=== PATIENT | male | born 1940 | race Caucasian/White ===

== ENCOUNTER 2017-11-17 12:50 | Day surgery (SDC) | payer MEDICARE, OTHER ==
--- NOTE | 2017-11-02 10:59 | HP ---
AMENDED REPORT NOW INCLUDES COSIGNER DESIGNATION - ESIGNED BEFORE ADJUSTMENTS CC: Dr. Ranjeet New * ADMISSION HISTORY AND PHYSICAL: DATE OF ADMISSION: 11/17/17 ATTENDING SURGEON: Miguel Bello MD * (DICTATED BY TIM BURGOS) CHIEF COMPLAINT: Left inguinal hernia (recurrent). HISTORY OF PRESENT ILLNESS: This is a 77-year-old male who relates a history of left groin bulge over the past 1 to 2 years. It has been minimally symptomatic with only occasional twinges of discomfort, particularly when he is upright and/or active for long periods of time. The bulge self-reduces when he is recumbent or supine. He has not had any change in GI or symptoms. Hernia was confirmed by his PCP, Dr. New, on routine exam in July and he was subsequently seen by Dr. Bello on 07/27/17. Exam at that time confirmed the presence of a left inguinal hernia, which was nontender and reducible. The patient had undergone repair of left inguinal hernia as a teenager. He is also status post repair of incarcerated right inguinal hernia as a teenager and then subsequent laparoscopic repair of recurrent right inguinal hernia with mesh in 2014. That surgery was otherwise unremarkable. Dr. Bello has discussed with him the indications for repair of this recurrent left inguinal hernia, the utilization of mesh, and the potential approaches of laparoscopic versus open. The patient understands all of these issues and would like to proceed as scheduled with laparoscopic, possible open, repair of left inguinal hernia with mesh. PAST MEDICAL HISTORY: 1. Depression and anxiety. 2. He has a history of lyme disease, which manifested with arthritis. He continues to have some arthritis changes in both wrists, which he manages conservatively. 3. He also has polyuria and urinary urgency with nocturia, but these symptoms have remained stable. 4. He has been treated for a couple of basal cell and squamous cell skin cancers and does have a yearly dermatological evaluation. 5. Chronic pain related to left upper extremity injury. 6. History on record indicates a past history of a right bundle-branch block with a negative stress test in 2001 and no additional interval problems. 7. He also has chronic allergic sinusitis and rhinitis. PAST SURGICAL HISTORY: 1. Bilateral hernia repairs as noted above. 2. He has undergone tonsillectomy remotely. 3. Varicose vein surgery of the right lower extremity including closure procedure of the greater saphenous vein. 4. Skin cancer excisions as noted. 5. No history of surgical anesthesia complications. CURRENT MEDICATIONS: 1. Sertraline 100 mg 1/3 tablet once daily. 2. Aspirin 325 mg one half tablet once daily (the patient will hold 7 to 10 days prior to surgery). 3. Multivitamin once daily. He also takes the following supplements. 1. Vitamin C. 2. Vitamin D. 3. Glucosamine chondroitin with MSM. 4. Curcumin. 5. JUAN-e. 6. Boswellia ty extract. 7. Melatonin p.r.n. 8. Calcium, magnesium and zinc. 9. Vitamin E. 10. Lycopene. 11. Resveratrol. (He is advised to hold his supplements for 3 days preop). DRUG ALLERGIES: No known drug allergies (he did have a serious allergic reaction to duck eggs in the past). FAMILY HISTORY: Negative for anesthesia problems, bleeding, or clotting disorders. SOCIAL HISTORY: The patient is . 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 He denies use of tobacco and drinks alcohol infrequently. He denies other drug use. REVIEW OF SYSTEMS: General: No recent constitutional symptoms or acute illnesses. His weight has been stable. Cardiovascular: As noted above, also with history of borderline hypertension, which has not required treatment. No recent chest pain, palpitations. Respiratory: No history of chronic cough, shortness of breath. He self-treats with saline rinses for his allergic rhinitis. GI: Colonoscopy done in 2010, which was a fairly normal study and no interval problems reported. : As noted above with urgency, polyuria and nocturia, but no changes in recent years. His chart record from Dr. New indicated that tamsulosin was prescribed, but that was not on his current med list per our chart record and I did not ask him. Endocrine: No diabetes or thyroid dysfunction. Neuro/Psych: History of depression and anxiety, stable. History of shingles with posthepatic neuralgia, resolved. Musculoskeletal: History of lyme. Possible lyme-related arthritis, stable. Dermatological/ Integumentary: History of nonmelanoma skin cancers, followed by Dermatology. PHYSICAL EXAMINATION GENERAL: Well-nourished, well-developed male, in no acute distress. VITAL SIGNS: Height 6 feet 1 inch, weight 173 pounds. Temperature 97.2, blood pressure 124/82, pulse 62, respirations 16. HEENT: Pupils are equal, round, reactive. EOMs intact. No conjunctival pallor. Oropharynx: Teeth in fair to good repair. No intraoral lesions. NECK: No lymphadenopathy, thyromegaly, or masses. LUNGS: Clear to auscultation. No rales or wheezes. HEART: Regular rate and rhythm. No murmur appreciated. ABDOMEN: Soft, nontender to palpation. No palpable masses or organomegaly. Bilateral groin incisions. Otherwise exam per Dr. Bello. No palpable recurrence on the right. BACK: No spinous process tenderness or CVA tenderness. Mild scoliosis per Dr. New's exam. GENITALIA: Otherwise not examined. RECTAL: Not done. EXTREMITIES: No edema. NEUROLOGIC: Grossly intact. SKIN: Warm and dry. No suspicious rashes or lesions noted, but full skin survey not performed. IMPRESSION: Left inguinal hernia (recurrent). PLAN: Laparoscopic, possible open, left inguinal hernia repair with mesh. TIM BURGOS [id number]/[facility] #: [id number] MARK
[~2017-11-17 12:50] MED LIST: Buffered Lidocaine 0.9% SYRIN* 5 ML/SYR SYRINGE INTRADERM ONE; Buffered Lidocaine 0.9% SYRIN* 5 ML/SYR SYRINGE ONE; Dexamethasone IV* 4 MG/ML 1 ML (4 MG) IV SLOW PU ONE; Dexamethasone IV* 4 MG/ML 1 ML (4 MG) ONE; Famotidine IV* 10 MG/ML 2 ML (20 mg) IV ONE; Famotidine IV* 10 MG/ML 2 ML (20 mg) ONE; ceFAZolin 2 GM PREMIX (*) 2 GM/50 ML BAG IVPB ONE
[2017-11-17] MEDS ORDERED: Bupivacaine 0.25% SDV* 30 ML ONE (14:34)
[2017-11-17] MEDS ORDERED: Lidocaine 2% PF * 5 ML VIAL ONE (14:43)
[2017-11-17] MEDS ORDERED: Mivacurium Chloride* 20 MG/10 ML VIAL IV ONE (14:43)
[2017-11-17] MEDS ORDERED: Propofol* 10 MG/ML 20 ML BTL IV PUSH ONE (14:43)
[2017-11-17] MEDS ORDERED: fentaNYL* 50 MCG/ML 2 ML VIAL (100 MCG VIAL) ONE ×2 (14:44→15:00)
[2017-11-17] MEDS ORDERED: EPHEDrine (Pressors)* 50 MG/ML VIAL ONE (15:07)
[2017-11-17] MEDS ORDERED: DiMENhydriNATE IV* 50 MG/ML VIAL IV PUSH PRN (15:22)
[2017-11-17] MEDS ORDERED: fentaNYL* 50 MCG/ML 2 ML VIAL (100 MCG VIAL) IV PRN (15:22)
[2017-11-17] MEDS ORDERED: oxyCODONE/Acetamin 5/325 MG* TAB PO PRN (15:22)
[2017-11-17] MEDS ORDERED: Naloxone* 0.4 MG/ML 1 ML VIAL IV PRN (15:22)
[2017-11-17] MEDS ORDERED: HYDROcodone/ACETAMIN 5-325 MG* 1 TAB PO PRN (15:22)
[2017-11-17] MEDS ORDERED: Ketorolac INJ* 30 MG/ML 1 ML VIAL ONE (15:46)
[2017-11-17] MEDS ORDERED: PROCHLORPERAZINE INJ 5 MG/ML 2 ML VIAL ONE (15:47)
[2017-11-17 18:29] VITALS: BP 146/87
--- NOTE | 2017-11-18 11:09 | OP ---
CC: Ranjeet New MD * DATE OF OPERATION: 11/17/17 - [facility] DATE OF : 40 SURGEON: Miguel Bello MD WATERWAY TRAFFIC CHECKER: Yara Wilks NP ANESTHESIOLOGIST: Grecia Gandhi MD ANESTHESIA: General endotracheal. PRE-OP DIAGNOSIS: Recurrent left inguinal hernia. POST-OP DIAGNOSIS: Recurrent left inguinal hernia. OPERATIVE PROCEDURE: Laparoscopic preperitoneal repair, left inguinal hernia with mesh. ESTIMATED BLOOD LOSS: Minimal. IV FLUIDS: Crystalloids. SPECIMEN: None. DRAINS: None. COMPLICATIONS: None. COUNTS: The instrument, needle, and sponge counts were correct. DESCRIPTION OF PROCEDURE: The patient was brought to the operating room and placed on table supine. Sequential compression devices were placed on both extremities. General anesthesia was administered. Stewart catheter was placed. He was positioned and padded appropriately. His abdomen was prepped and draped in the usual sterile fashion. He received appropriate intravenous antibiotics and time-out was performed. Local anesthetic was infiltrated into the skin and soft tissue prior to making each incision. The initial incision was an infraumbilical incision utilizing the previous scar and the subcutaneous tissues were divided with cautery and sharp dissection. The rectus sheath was identified to the left of midline and incised transversely. The underlying muscle was retracted laterally. A preperitoneal balloon dissector was positioned down to the pubic symphysis and insufflated under direct visualization with the dissector dissecting the left side of the preperitoneal space only. The balloon dissector was removed and replaced with a 12- mm blunt port. Carbon dioxide was insufflated to a pressure of 12 mmHg. Two 5-mm trocars were placed in the lower midline. Dissection proceeded from the midline laterally, identifying the pubic symphysis and then moving laterally, the inferior epigastric vessels were identified and preserved. There was no evidence of a direct inguinal hernia. The dissection proceeded further laterally and a hernia sac was encountered. There was some scarring associated with this. The hernia sac was identified traversing through the deep ring. The hernia sac was dissected free from the spermatic cord structures which were preserved. The hernia sac was divided and it was ligated with a 2-0 Surgitie. The dissection proceeded laterally to the anterior superior iliac spine. The repair was performed with the Covidien ProGrip mesh which was cut to fashion a patch that would cover the direct, indirect, and femoral spaces. The mesh was placed into the preperitoneal space. There was an excess amount of mesh laterally, so this was trimmed. The mesh was then unfurled to cover the hernia space orifices. The carbon dioxide was released from the preperitoneal space. There was noted to be a large amount of intraperitoneal gas and therefore, the 12-mm port was repositioned into the peritoneal cavity. Inspection of the left and right groin was then performed and there was no evidence of any rent in the peritoneum. The mesh appeared to be in good position. On the right side, there was some lifting of the old polypropylene mesh at the lower lip; however, in general, the mesh was in good position. The carbon dioxide was released and ports were removed. The umbilical wound was closed using 0 Vicryl to approximate the posterior and anterior rectus sheath in a figure- of-eight fashion. Skin incisions were closed with 4-0 Monocryl. Steri-Strips were applied with dry dressings. The patient tolerated the procedure well. He was extubated and transferred to recovery room in stable condition. [id number]/[facility] #: [id number] MARK
== END 2017-11-17 19:00 | disposition home or self-care (01) ==
LOC: OR 12:50
PROVIDERS: ATTEND Surgery
DX: K40.91 Unilateral inguinal hernia, without obstruction or gangrene, recurrent (principal); F41.8 Other specified anxiety disorders; A69.23 Arthritis due to Lyme disease; Z85.828 Personal history of other malignant neoplasm of skin; G89.21 Chronic pain due to trauma; I45.10 Unspecified right bundle-branch block; R35.8 Other polyuria
CPT/HCPCS: J0690; J0780; J1100; J1885; J2704; J3010